=== PATIENT | female | born 1935 | race Caucasian/White ===

== ENCOUNTER → 2016-11-14 | Outpatient (CLI) | payer OTHER ==
[~2016-11-14] MED LIST: ASPIRINEC PO; BUSPAR PO; CLONIDINE PO; COLCHICINE PO; COREG PO; COZAAR PO; DIAZEPAM PO; JANUVIA PO; KCL PO; LASIX PO; MUCOMYST200 MG/ML INJ
[2016-11-14 13:39] LABS: HEMOGLOBIN 10.6 gm/dL (12.0-16.0); MEAN CELL VOLUME 99.3 FL (83-96); MEAN CORPUSCULAR HGB CONC 34.3 g/dL (30-36); MEAN PLATELET VOLUME 8.6 FL (6.5-11.5); RED BLOOD COUNT 3.12 X10e (3.90-5.30); RED CELL DISTRIBUTION WIDTH 15.9 % (11.0-15.5); WHITE BLOOD COUNT 3.5 X10e3 (4.0-10.5)
[2016-11-14 13:57] LABS: CALCIUM SERUM 9.7 mg/dL (8.4-10.2)
[2016-11-14 14:06] LABS: CREATININE SERUM 1.5 mg/dL (0.6-1.4); GLOM FILT RATE Estimated 31.9 mL/min (>60); PHOSPHOROUS 2.5 mg/dL (2.5-4.6)
== END | disposition home or self-care (01) ==
LOC: CLAB 12:22
PROVIDERS: Internal Medicine Nephrology
DX: N18.3 Chronic kidney disease, stage 3 (moderate) (principal)
CPT/HCPCS: 36415; 80048; 82306; 82310; 83970; 84100; 84550; 85027

== ENCOUNTER → 2016-12-04 | Outpatient (CLI) | payer OTHER ==
[2016-12-04 13:19] LABS: BUN/CREATININE RATIO 18.12; CALCIUM SERUM 10.1 mg/dL (8.4-10.2); CREATININE SERUM 1.6 mg/dL (0.6-1.4); GLOM FILT RATE Estimated 29.5 mL/min (>60); POTASSIUM 4.2 mmol/L (3.5-5.1)
== END | disposition home or self-care (01) ==
LOC: CLAB 12:05
PROVIDERS: Internal Medicine Nephrology
DX: N18.3 Chronic kidney disease, stage 3 (moderate) (principal)
CPT/HCPCS: 36415; 80048